=== PATIENT | female | born 1995 | race Two or more races ===

== ENCOUNTER 2022-10-21 05:56 | Day surgery (SDC) | payer OTHER ==
[2022-10-21] MEDS ORDERED: PRENATABS RX T1 EACH (06:35)
== END 2022-10-21 19:15 | disposition home or self-care (01) ==
LOC: CIR.AMB 05:56
PROVIDERS: ATTEND Obstetrics & Gynecology
DX: O02.1 Missed abortion (principal); O72.2 Delayed and secondary postpartum hemorrhage; Z88.0 Allergy status to penicillin; Z20.822 Contact with and (suspected) exposure to COVID-19

== ENCOUNTER 2023-08-17 09:21 | Emergency (ER) | payer OTHER ==
[~2023-08-17] VITALS: Ht 162.6 cm; Wt 63.5 kg
[~2023-08-17 09:21] MED LIST: PRENATABS RX T1 EACH
[2023-08-17 11:59] LABS: HEMATOCRIT 32.4 % (36.0-45.00); HEMOGLOBIN 10.7 g/dL (12.0-15.00); MEAN CELL VOLUME 74.2 fL (80.00-100.00); MEAN CORPUSCULAR HEMOGLOBIN 24.6 pg (27.00-32.0); MEAN CORPUSCULAR HGB CONC 33.1 g/dl (32.0-36.0); PLATELET COUNT 301 K/uL (150-450); RED BLOOD COUNT 4.37 M/uL (4.00-6.00); RED CELL DISTRIBUTION WIDTH 17.4 % (11.5-14.5)
[2023-08-17 12:35] LABS: CALCIUM 8.7 mg/dL (8.5-10.1); CREATININE SERUM 0.54 mg/dL (0.55-1.02); GFR 134.43; POTASSIUM 3.62 mEq/L (3.5-5.1)
== END 2023-08-17 14:06 | disposition home or self-care (01) ==
LOC: ER 09:21
PROVIDERS: General Practice
DX: O20.8 Other hemorrhage in early pregnancy (principal); Z88.0 Allergy status to penicillin